=== PATIENT | female | born 1970 | race Asian ===

== ENCOUNTER 2022-04-14 14:18 | Emergency (ER) | payer BC ==
[~2022-04-14] VITALS: Ht 157.5 cm; Wt 49.9 kg
[2022-04-14 14:25] VITALS: BP_SYST 126
[2022-04-14 14:30] VITALS: BP_SYST 104
--- NOTE | 2022-04-14 14:37 | NUR ---
Patient to ER bed 08 to gown for evaluation. Side rails up.
[2022-04-14] MEDS ORDERED: ONDANSETRON 4 MG ODT TAB PO ONE (15:00)
--- NOTE | 2022-04-14 15:23 | NUR ---
Pt BIBA C?O flulike symptoms +vomitting + COVID 04/08 Mandarin speaking AOX4 VSS Able to make needs known Will continue to monitor
[2022-04-14 15:40] LABS: BASOPHILS % (AUTO) 0.3 % (0.0-2.0); EOSINOPHILS % (AUTO) 0.7 % (0.0-4.0); HEMATOCRIT 36.4 % (36-48); HEMOGLOBIN 12.7 g/dL (12.0-16.0); LYMPHOCYTES % (AUTO) 18.2 % (20.5-51.5); MEAN CORPUSCULAR HEMOGLOBIN 31 pg (27-31); MEAN CORPUSCULAR HGB CONC 35 % (32-36); MEAN CORPUSCULAR VOLUME 88 fL (79.0-98.0); MONOCYTES # (AUTO) 0.2 K/uL (0.0-1.0); MONOCYTES % (AUTO) 4.7 % (1.7-9.3); NEUTROPHILS % (AUTO) 76.1 % (40.0-70.0); PLATELET COUNT (AUTO) 226 K/uL (130-430); RED BLOOD CELL COUNT(AUTO) 4.12 MIL/uL (4.2-6.2); RED CELL DISTRIBUTION WIDTH 12.1 % (9.0-15.0); WHITE BLOOD COUNT (AUTO) 5.3 K/uL (4.8-10.8)
[2022-04-14 15:57] LABS: ANION GAP 10 (5-15); CALCIUM 9.2 mg/dL (8.4-11.0); CHLORIDE 104 mmol/L (98-107); CREATININE 0.73 mg/dL (0.55-1.30); GLUCOSE 121 mg/dL (70-99); UREA NITROGEN, BLOOD 9 mg/dL (8-21)
[2022-04-14 16:02] LABS: ALANINE AMINOTRANSFERASE 26 U/L (12-78); ALBUMIN 3.4 g/dL (3.4-4.8); AMYLASE 72 U/L (0-100); ASPARTATE AMINOTRANSFERASE 20 U/L (10-37); LIPASE 85 U/L (73-393); TOTAL BILIRUBIN 0.4 mg/dL (0.0-1.0)
[2022-04-14 16:25] LABS: C-REACTIVE PROTEIN QUANT < 0.2 mg/dL (0-0.5); GFR AFRICAN AMERICAN 109 mL/min (>90)
--- NOTE | 2022-04-14 17:13 | NUR ---
COVID SWAB OBTAINED AND SENT TO LAB
[2022-04-14] MEDS ORDERED: IBUP-1969 PO (17:19)
[2022-04-14] MEDS ORDERED: ONDA-8 TL (17:19)
[2022-04-14 17:28] VITALS: BP_SYST 122
--- NOTE | 2022-04-14 17:28 | NUR ---
Patient given written and verbal discharge instructions and verbalizes understanding. ER MD discussed with patient the results and treatment provided. Patient in stable condition. ID arm band removed. Rx of ibuprofen and zofran given. Patient educated on pain management and to follow up with PMD. Pain Scale 0/10 Opportunity for questions provided and answered. Medication side effect fact sheet provided.
[2022-04-14 20:31] LABS: ACETONE, SERUM NEGATIVE (NEGATIVE)
== END 2022-04-14 17:28 | disposition home or self-care (01) ==
LOC: SED 14:18
DX: U07.1 COVID-19 (principal); K52.9 Noninfective gastroenteritis and colitis, unspecified; R11.10 Vomiting, unspecified; R42 Dizziness and giddiness; Z79.899 Other long term (current) drug therapy
CPT/HCPCS: 99284; 71045; 87426; 80053; 82009; 82150; 84703; 83690; 85025; 86140; 36415; 83605; Q0162